=== PATIENT | male | born 1990 | race Hispanic/Latino ===

== ENCOUNTER 2020-08-08 10:29 | Emergency (ER) | payer OTHER ==
[~2020-08-08] VITALS: Ht 175.3 cm; Wt 90.9 kg
[2020-08-08] MEDS ORDERED: ACETAMINOPHEN 500 MG TAB PO ONE (11:30)
[2020-08-08] MEDS ORDERED: LIDOCAINE 5% (LIDODERM) PATCH TD ONE (11:30)
--- NOTE | 2020-08-08 11:58 | REPVR ---
PROCEDURE INFORMATION: Exam: CT Lumbar Spine Without Contrast Exam date and time: 08/08/2020 11:45 AM Age: 30 years old Clinical indication: Low back pain; Additional info: Deadlifting fel pop, severe back pain TECHNIQUE: Imaging protocol: Computed tomography images of the lumbar spine without contrast. Radiation optimization: All CT scans at this facility use at least one of these dose optimization techniques: automated exposure control; mA and/or kV adjustment per patient size (includes targeted exams where dose is matched to clinical indication); or iterative reconstruction. COMPARISON: No relevant prior studies available. FINDINGS: Vertebrae: No acute fracture. Normal alignment. Discs/Spinal canal/Neural foramina: At L4/5, there is a left paracentral disc protrusion. This indents the ventral thecal sac, contributing to mild canal stenosis. There is mild bilateral neural foraminal narrowing. Soft tissues: Unremarkable. IMPRESSION: No acute fracture. Disc protrusion at L4/5 indents the thecal sac, contributing to at least mild canal stenosis and mild bilateral neural foraminal narrowing.. Electronically signed by: Lin Stewart On 08/08/2020 11:58:37 AM
[2020-08-08 12:35] VITALS: BP 121/83
[2020-08-08] MEDS ORDERED: **NOTE PATIENT COMMENT** MISC XX SCH (21:00)
== END 2020-08-08 12:37 | disposition home or self-care (01) ==
LOC: M ED 10:29
DX: M51.26 Other intervertebral disc displacement, lumbar region (principal); S39.92XA Unspecified injury of lower back, initial encounter; X50.0XXA Overexertion from strenuous movement or load, initial encounter; Y93.B3 Activity, free weights; Y99.1 Military activity; Y92.9 Unspecified place or not applicable

== ENCOUNTER → 2025-11-18 | Outpatient (CLI) | payer OTHER | LOC: M SLEEP 20:00 | PROVIDERS: ATTEND Physician Assistant | DX: G47.33 Obstructive sleep apnea (adult) (pediatric) (principal) ==